=== PATIENT | female | born 2000 | race Two or more races ===

== ENCOUNTER 2020-04-09 02:11 | Emergency (ER) | payer SELFPAY ==
[~2020-04-09] VITALS: Ht 172.7 cm; Wt 113.4 kg
[2020-04-09 02:13] VITALS: BP 129/88
--- NOTE | 2020-04-09 02:15 | NUR ---
ED Nurse Note: Patient became verbally agressive and screaming at staff stating "where is my car" and throwing things around. Security on standby. patient refusing to be assessed or treated. unable to assess patient d/t being verbally and physically aggressive. staff attempted to redirect patient but patient refused to cooperate.
--- NOTE | 2020-04-09 02:30 | NUR ---
ELOPEMENT: Patient became verbally agressive and screaming at staff stating "where is my car" and throwing things around. Security on standby. patient refusing to be assessed or treated. unable to assess patient d/t being verbally and physically aggressive. staff attempted to redirect patient but patient refused to cooperate.
--- NOTE | 2020-04-09 02:30 | NUR ---
ED Nurse Note: PATIENT ELOPED AND REFUSED TO BE SEEN. PATIENT AMBULATED OUT OF ED WTIH A STEADY GAIT
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
== END 2020-04-09 02:30 | disposition left against medical advice (07) ==
LOC: EDBD 02:11 → EMR 02:30
DX: R45.1 Restlessness and agitation (principal); Z53.29 Procedure and treatment not carried out because of patient's decision for other reasons
CPT/HCPCS: 96360; 99284